=== PATIENT | female | born 1990 | race African-American/Black ===

== ENCOUNTER 2016-10-01 16:42 | Emergency (ER) | payer MEDICAID ==
[~2016-10-01] VITALS: Ht 172.7 cm; Wt 56.7 kg
--- NOTE | 2016-10-01 16:55 | NUR ---
PELVIC PAIN X 5 DAYS "I HAVE A BARTHOLIN'S CYST"
[2016-10-01] MEDS ORDERED: TDAP [DIPH/PERTUSSIS/TET] 0.5 ML VIAL IM ONE ×2 (18:30→18:44)
[2016-10-01] MEDS ORDERED: oxyCODONE/APAP (5/325 MG) 1 UDTAB TABLET PO ONE (18:30)
[2016-10-01] MEDS ORDERED: oxyCODONE/APAP (5/325 MG) 1 UDTAB TABLET ONE (18:44)
--- NOTE | 2016-10-01 19:00 | NUR ---
PT REFUSED PAIN MEDS AND TDAP
--- NOTE | 2016-10-01 19:04 | NUR ---
CHAVEZ GLOVE TURNER AT BEDSIDE FOR EVAL
[2016-10-01] MEDS ORDERED: LIDOCAINE 1%-EPI 1:200,000 SDV 10 ML VIAL IJ ONE (19:22)
[2016-10-01] MEDS ORDERED: ONDANSETRON 4 MG TAB.RAPDIS ONE (19:25)
[2016-10-01] MEDS ORDERED: MORPHINE SULFATE INJ 4 MG/ML DISP.SYRIN ONE (19:25)
[2016-10-01] MEDS ORDERED: MORPHINE SULFATE INJ 2 MG/ML DISP.SYRIN IM ONE (19:30)
[2016-10-01] MEDS ORDERED: LIDOCAINE 1%-EPI 1:100,000 50 ML VIAL IJ ONE (19:30)
[2016-10-01] MEDS ORDERED: ONDANSETRON 4 MG TAB.RAPDIS SL ONE (19:30)
--- NOTE | 2016-10-01 20:10 | NUR ---
DR [facility] [employer] [employer] AT BEDSIDE FOR THE REMOVAL OF BARTHOLIN CYST.
[2016-10-01] MEDS ORDERED: LIDOCAINE /MPF 1% VIAL 5 ML VIAL ONE (20:44)
[2016-10-01] MEDS ORDERED: CEFTRIAXONE 500 MG VIAL ONE (20:44)
[2016-10-01] MEDS ORDERED: AZITHROMYCIN 250 MG TABLET ONE (20:44)
[2016-10-01] MEDS ORDERED: HYDROCODONE/APAP 10/325MG 1 EA TABLET ONE (20:59)
[2016-10-01] MEDS ORDERED: AZITHROMYCIN 250 MG TABLET PO ONE (21:00)
[2016-10-01] MEDS ORDERED: CEFTRIAXONE 500 MG VIAL IM ONE (21:00)
[2016-10-01] MEDS ORDERED: HYDROCODONE/APAP 10/325MG 1 EA TABLET PO ONE (21:00)
[2016-10-01] MEDS ORDERED: IBUPROFEN 600 MG TABLET PO ONE ×2 (21:00)
--- NOTE | 2016-10-01 21:04 | NUR ---
Patient discharged to home in stable condition. Written and verbal after care instructions given. Patient verbalizes understanding of instruction. Patient is ambulatory with steady gait, accompanied by friend. Instructed not to drive. No further complaints.
[2016-10-01 21:05] VITALS: BP 120/69
== END 2016-10-01 21:05 | disposition home or self-care (01) ==
LOC: ER 16:45
DX: N75.0 Cyst of Bartholin's gland (principal)
CPT/HCPCS: 90715; A4606; A6402; J0696; J2270; J3490; Q0162; Z7610

== ENCOUNTER 2016-10-06 12:06 | Emergency (ER) | payer MEDICAID ==
[~2016-10-06] VITALS: Ht 172.7 cm; Wt 54.9 kg
[2016-10-06 12:12] VITALS: BP 124/76
--- NOTE | 2016-10-06 12:47 | NUR ---
BRYAN MAYNARD AT BEDSIDE FOR EVAL
== END 2016-10-06 13:04 | disposition home or self-care (01) ==
LOC: ER 12:07
DX: N75.1 Abscess of Bartholin's gland (principal)
CPT/HCPCS: 99281; A4606; Z7610; Z7502